=== PATIENT | female | born 1935 | race Caucasian/White ===

== ENCOUNTER 2021-06-17 20:39 | Inpatient (IN) | payer MEDICARE, BC ==
[~2021-06-17] VITALS: Ht 165.1 cm; Wt 87.2 kg
[2021-06-17] MEDS ORDERED: METOPROLOL TART25 MG PO (22:07)
[2021-06-17] MEDS ORDERED: FUROSEMIDE20 MG PO (22:07)
[2021-06-17] MEDS ORDERED: ARIPIPRAZOLE2 MG PO (22:08)
[2021-06-17] MEDS ORDERED: NEXIUM 24HR20 M2 PO (22:08)
[2021-06-17] MEDS ORDERED: SERTRALINE HCL100 MG PO (22:09)
[2021-06-17] MEDS ORDERED: MELATONIN3 MG PO (22:09)
[2021-06-17] MEDS ORDERED: COZAAR25 MG PO (22:09)
[2021-06-17] MEDS ORDERED: ACETAMINOPHEN500 MG PO (22:10)
[2021-06-17] MEDS ORDERED: KLOR-CON 1010 MEQ PO (22:11)
--- NOTE | 2021-06-18 01:17 | NUR ---
PT ARRIVED TO THE CCU VIA STRETCHER AWAKE AND ALERT ON 4L O2 NC, SPO2 95-100%. PT BELONGINGS BROUGHT, PT'S DAUGHTER IN LAW IN THE ROOM AT THE BEDSIDE. PT TRANSFERRED TO THE BED VIA HOVER MAT AND PT SAT UP. PT VITALS TAKEN AND PT ASSESSEDMENT COMPLETED (SEE CHART). PT ALERT AND ORIENTED X4, DENIES HAVING ANY PAIN, AND REPORTS THAT HER SHORTNESS OF BREATH HAS IMPROVED WITH THE OXYGEN SHE IS RECEIVING. LUNGS CLEAR IN UPPER LOBES, DIMINISHED IN THE BASES BILATERALLY, FINE CRACKLES HEARD IN RIGHT LOWER BASE. PT RR 20-23. BOWEL TONES HYPOACTIVE, RADIAL AND PEDAL PULSES STRONG, GENERALIZED EDEMA PRESENT IN LOWER LEGBS BILATERALLY. YIP IN PLACE AND DRAINING CLEAR YELLOW URINE. PT TEMP WAS 100 ORAL, PRN TYLENOL ADMINISTERED ALONG WITH SCHEDULED IV MAGNESIUM (SEE MAR). PT PROVIDED WITH ICE WATER AND JUICE PER HER REQUEST. ADMISSION HISTORY OBTAINED FROM BOTH THE PT AND DAUGHTER IN LAW. PT REPORTS NO FURTHER NEEDS AND IS NOW RESTING IN BED, IV MEDICATION INFUSING. PTS DAUGHTER IN LAW REMAINS IN THE ROOM AT THE BEDSIDE. CALL LIGHT IN REACH, BED IN LOWEST POSITION, WILL CONTINUE PLAN OF CARE.
--- NOTE | 2021-06-18 01:36 | NUR ---
CALL LIGHT USED BY PT, IV PUMP ALARMING, IV MAGNESIUM COMPLETED. PT SALINE LOCKED AT THIS TIME. PT REPORTS NO FURTHER NEEDS AT THIS TIME WHEN ASKED. PT ON 4L O2 NC, SPO2 97%, CALL LIGHT IN REACH, BED IN LOWEST POSITION, WILL CONTINUE PLAN OF CARE.
--- NOTE | 2021-06-18 03:30 | NUR ---
PT SLEEPING IN BED AT THIS TIME, RR EVEN, RATE 20-25, PT IN NO APPARENT DISTRESS AT THIS TIME AND WAS LEFT UNDISTURBED. PT'S DAUGHTER IN LAW SLEEPING IN THE PULL DOWN SOFA-BED IN ROOM. NO NEEDS ASSESSED AT THIS TIME, WILL CONTINUE PLAN OF CARE.
--- NOTE | 2021-06-18 05:00 | NUR ---
PT LAYING IN BED SLEEPING AND AWOKE EASILY. PT ORIENTED AT THIS TIME AND REPORTS NO SHORTNESS OF BREATH OR PAIN WHEN ASKED. PT VITALS TAKEN AND ASSESSMENT COMPLETED (SEE CHART). PT LEFT ON 4L O2 NC, SPO2 92-98%. PT PROVIDED WITH ICE WATER AFTEWARDS, YIP DRAINING CLEAR YELLOW URINE. PT REPORTS NO FURTHER NEEDS WEHN ASKED AND STATES SHE WILL TRY TO GET MORE SLEEP, WILL CONTINUE PLAN OF CARE. CALL LIGHT IN REACH, BED IN LOWEST POSITION, PT'S DAUGHTER IN LAW IN THE ROOM.
--- NOTE | 2021-06-18 06:27 | NUR ---
PT AWAKE AND ALERT LAYING IN BED AT THIS TIME. PT ON 4L O2 NC, SPO2 98%, PT DENIES HAVING SOB. PT REQUESTED WARM BLANKETS AT THIS TIME. WARM BLANKETS PROVIDED, PT REPORTS NO FURTHER NEEDS AT THIS TIME WHEN ASKED, CALL LIGHT IN REACH, BED IN LOWEST POSITION, WILL CONTINUE PLAN OF CARE.
--- NOTE | 2021-06-18 06:50 | NUR ---
DR. FRANCISCO UPDATED ON PT REGARDING VITALS, ASSESSMENT, AND LABS. NEW ORDERS FOR 20MEQ KCL IVPB GIVEN (SEE MAR). WILL CONTINUE PLAN OF CARE.
--- NOTE | 2021-06-18 07:23 | EKG ---
[facility] [address] [place] [address] Signed Wide QRS rhythm with occasional ventricular-paced complexes Left axis deviation Left bundle branch block Abnormal ECG No previous ECGs available Confirmed by YANDY FRANCISCO MD ([id number] on 06/18/2021 7:23:25 AM Electronically Signed By: YANDY FRANCISCO MD 06/18/21722 PATIENT NAME: JENNIFER MOON Electrocardiogram DATE OF : 35 PHYSICIAN: YANDY FRANCISCO MD REPORT #: [id number] REPORT IS CONFIDENTIAL AND NOT TO BE RELEASED WITHOUT AUTHORIZATION
--- NOTE | 2021-06-18 08:05 | NUR ---
IN TO DO ASSESSMENT AND GIVE PT HER BREAKFAST AND AM MEDS. ASKED PT HOW HER BREATHING FELT AND SHE SAID "BETTER", SPO2 100% ON 4L/O2/NC, WILL TITRATE O2 DOWN TO 2L. LUNGS DIM IN BASES CLEAR THROUGHOUT. PT DENIES HAVING MUCH COUGHING. ALERT AND ORIENTED. MEDS EXPLAINED TO PT AND PT AGREES TO ALL, KCL INFUSION STARTED. YIP IN PLACE DRAINING CLEAR YELLOW URINE. PT REPOSITIONED UP IN BED FOR BREAKFAST, ASSITED WITH GETTING FOOD SITUATIED, MORE APPLE JUICE AND WATER GIVEN. WEB SERVICES ARCHITECT TRAY GIVEN TO FAMILY MEMBER.
--- NOTE | 2021-06-18 08:45 | NUR ---
UPdate from Rn as pt has covid and is tired. Pt is doing well, using 3L02.
--- NOTE | 2021-06-18 09:13 | NUR ---
REPORT RECEIVED FORM DORI DAN. PT IS RESTING IN BED WITH EYES CLOSED, OPENS WITH DOOR OPENING. ASKED IF SHE NEEDS ANYTHING AND SHE REQUESTS MORE WATER, NO OTHER COMPLAINTS. FAMILY MEMBER SLEEPING ON COUCH.
--- NOTE | 2021-06-18 11:27 | NUR ---
IN TO CHECK ON PT, ORAL TEMP IS 100.8. PT DENIES FEELING SOB, SPO2 HAS BEEN 95% ON 2L/O2 WITH RR 20-28. SLIGHT EXP WHEEZE HEARD, CLEARED WITH COUGH. PT C/O HEADACHE, WILL GIVE PRN TYLENOL. PT GIVEN EDUCATION REGARDING PRONING AND IS AGREEABLE, PLAN TO SIDE LIE FOR A PERIOD AND THEN PRONE AFTER THAT. PT STATES SHE IS NOT HUNGRY AND DOES NOT FEEL LIKE EATING.
--- NOTE | 2021-06-18 11:48 | NUR ---
PT GIVEN PRN TYLENOL FOR HEADACHE AND FEVER. DR FRANCISCO IN TO SEE PT.
--- NOTE | 2021-06-18 13:31 | NUR ---
PT RESTING ON RIGHT SIDE WITH EYES CLOSED, RESP EVEN UNLABORED, RR 22, SPO2 95% ON 2L/O2/NC. DAUGHTER IN LAW ALSO SLEEPING ON COUCH.
--- NOTE | 2021-06-18 15:00 | NUR ---
PT CONT TO REST, HAS TURNED ONTO BACK, OPENS EYES BRIEFLY AND DENIES NEEDS.
--- NOTE | 2021-06-18 16:30 | NUR ---
IN TO DO ASSESSMENT, BED BATH AND REPOSITION PT. BED BATH GIVEN. PT THEN SAT UP TO EDGE OF BED, SWUNG HER LEGS OVER AND STOOD UP WITH ASSIST, HR STEADY 60, RESP DID NOT LOOK LABORED, DID SAY "I FEEL A LITTLE WOOZY". ATTEMPTED TO GET HER INTO PRONE POSITION, ALTHOUGH SHE DID HAVE SOME DIFFICULTY DUE TO KNEE PROBLEMS. WAS ABLE TO GET HER INTO SEMI PRONE, RIGHT SIDED POSITION. PT TOLERATING WELL, STATES SHE IS COMFORTABLE. CALL LIGHT PLACED INTO HAND. LUNGS HAVE CRACKLES BILATERALLY. HAS REMAINED ON 2L/O2/NC THROUGH THE DAY WITH SATS IN MID NINETIES, RR 20 AND HR 60 ATRIAL PACED. DAUGHTER IN LAW HAS REMAINED IN THE ROOM AND STATES SHE WILL BE STAYING WITH PT THE ENTIRE TIME. LINENS ALSO CHANGED DURING THIS TIME. PT HAD BEEN QUITE SWEATY, STATES "I STILL GET NIGHT SWEATS EVEN THOUGH IM 85"
--- NOTE | 2021-06-18 20:33 | NUR ---
PT IS DISORIENTED TO DATE ONLY, KNOWS MONTH AND YEAR. PT DENIES SOB AND PAIN AT THIS TIME. ASSISTED WITH ORAL CARE AND FACE WASHING. PT DENIES ANY NEEDS AT THIS TIME. O2 99% ON 2L VIA NC. CRACKELS BILATERAL POSTERIOR LUNG LYON. O2 WEANED TO 1L NC, WILL TITRATE INDICATED.
--- NOTE | 2021-06-18 23:40 | NUR ---
PT COMPLAINS OF 3/10 PAIN D/T HEADACHE. PRN TYLENOL ADMINISTERED PER PT REQUEST. PT DENIES FURTHER NEEDS AT THIS TIME. VSS. PT CONTINUES TO SAT IN THE HIGH 90S ON 1L VIA NC. WILL LEAVE ON 1L OVERNIGHT AND TITRATE APPROPRIATE WHILE AWAKE.
--- NOTE | 2021-06-19 07:40 | NUR ---
REPORT RECEIVED FROM JUDSON DAN. PT HAD CALLED, INC OF LOOSE STOOL, ASSISTED UP TO BR WITH WALKER TO SIT ON TOILET. HAD OXYGEN REMOVED, SATS WHEN SPO2 MONITOR PLACED BACK ON WAS 95%, WILL KEEP PT ON ROOM AIR AND CONT TO MONITOR. PT ASSISTED WITH CLEANING UP, BACK TO BED WITH SBA AND WALKER, ONCE BACK SITTING UP TO EDGE OF BED PT BECAME NAUSEATED AND HAD 100ML EMESIS. 4MG IV ZOFRAN GIVEN. ASSESSMENT DONE, LUNGS HAVE CRACKLES IN BASES BILAT. AFTER APPROX 10 MINUTES SHE STATES NAUSEA IS GONE, BUT DOES NOT WANT TO TRY EATING BREAKAST AT THIS TIME. DR FRANCISCO THEN IN TO SEE PT, PLAN OF CARE DISCUSSED WITH HER, PLAN TO TRANSFER PT TO MED SURG STATUS.
--- NOTE | 2021-06-19 08:36 | NUR ---
IN TO CHECK ON PT, PT STATES SHE IS FEELING BETTER, LOOKING PERKIER. SITTING UP DRINKING SOME MILK. GAVE HER HER AM MEDICATIONS, TOOK WITHOUT DIFFICULTY. AM CARES DONE, FACE WASHED AND HANDS WASHED. PT STATES SHE DID NOT SLEEP VERY WELL LAST NIGHT. DENIES FEELING SOB AT THIS TIME, REMAINS ON ROOM AIR WITH SPO2 95%. CALL LIGHT IN LAP AND WILL CALL WITH FURTHER NEEDS.
--- NOTE | 2021-06-19 09:52 | NUR ---
PT CALLED TO C/O 08/25 HEADACHE AND ASKING FOR PAIN MED, TYLENOL 650MG PO GIVEN. NO FURTHER REQUESTS, STATES NAUSEA STILL GONE SINCE ZOFRAN WAS GIVEN.
--- NOTE | 2021-06-19 10:33 | NUR ---
SPO2 HAD DROPPED DOWN TO 90-92%. OXYGEN REAPPLIED 1L/NC AND SATS CAME UP TO 96%.
--- NOTE | 2021-06-19 11:50 | NUR ---
LUNCH BROUGHT IN TO PT, PT ASSISTED WITH SITTING UP IN BED TO EAT. SPO2 98% ON 1L/O2. ASSESSMENT DONE, THEN PT SET UP TO EAT, NO REQUESTS, CALL LIGHT IN HAND.
--- NOTE | 2021-06-19 12:18 | NUR ---
MED REC COMPLETE
--- NOTE | 2021-06-19 13:00 | NUR ---
BPS HAVE BEEN LOWER THROUGH THE LAST FEW HOURS, URINE OUTPUT ALSO LOW, DR FRANCISCO NOTIFIED.
--- NOTE | 2021-06-19 14:17 | NUR ---
PT UP TO HAVE BOWEL MOVEMENT IN BATHROOM, USED WALKER, PHYSICAL THERAPY ALSO IN ASSISTING PT WITH WALKING. BED CHANGED, BED BATH GIVEN.
--- NOTE | 2021-06-19 14:49 | NUR ---
IN TO CHECK ON PT, IVF STARTED AND EXPLAINED TO PT. PT DENIES SOB/NAUSEA/HEADACHE. RESTING IN BED, DENIES NEEDS. REMAINS ON ROOM AIR WITH SPO2 93-94%.
--- NOTE | 2021-06-19 16:30 | NUR ---
IN TO TRANSFER PT TO MED SURG, REPORT GIVEN TO ASH DAN. PT NOTED TO HAVE CHILLS AND C/O BEING COLD. ORAL TEMP IS 100.2. 650MG PO TYLENOL GIVEN FOR PT COMFORT.
--- NOTE | 2021-06-19 17:00 | NUR ---
REPORT RECIEVED FROM [facility][1] CCU RN, PT AWAKE AND ALERT, PT HAVING CHILLS PRN TYLENOL GIVEN TO PT BY CCU NURSE, AQUATICS DIRECTOR AT BEDSIDE NO NEEDS
--- NOTE | 2021-06-19 17:45 | NUR ---
PT REQUESTING A DOSE OF ZOFRAN PRIOR TO DINNER. PRN GIVEN
--- NOTE | 2021-06-19 18:00 | NUR ---
Update from Rn. Pt has moved to the medical floor. Pt has vomiting and diarrhea this am. Now has a fever. No plan for dc today.
--- NOTE | 2021-06-19 19:40 | NUR ---
SHIFT REPORT RECEIVED FROM DAYSHIFT NI ALEMAN. pt AWAKE AND RESTING IN BED, DAUGHTER IN LAW ALSO IN ROOM. pt ON RA, CPOX IN PLACE. SPO2 AND HR BOTH WNL. NO NEEDS OR CONCERNS AT THIS TIME. CALL LIGHT IN REACH.
--- NOTE | 2021-06-19 21:30 | NUR ---
SPOKE TO DR BUSH, pt REPORTING PAIN R/T HEADACHE, UNABLE TO TAKE PRN TYLENOL. MD BUSH TO READJUST TIME DOSE AND FREQUENCY OF PRN TYLENOL.
--- NOTE | 2021-06-19 22:30 | NUR ---
ASSESSMENT COMPLETE, TELE DC'D AT SHIFT CHANGE, REMOVED AT THIS TIME. pt ON CPOX pt IS COVID +, ON RA. NO SOB OR DYSPNEA NOTED. TEMP RESULT OF 100.0, PRN TYLENOL GIVEN (SEE EMAR). pt DEMONSTRATED USE OF IS, ONLY REACHED THE 500 MARKER. pt UP FOR BID ORTHO VS, UNABLE TO STAND FOR FULL 3 MINUTES, ONLY ABLE TO OBTAIN LAYING BP/HR AND 1 MINUTE STANDING BP/HR. pt TOOK PILLS FINE, NO ISSUES SWALLOWING NOTED. pt REPSOITIONED IN BED AND BOOSTED. EXCESS BLANKETS REMOVED WELL SOCKS. CAREGIVEER REMAINS IN ROOM. CALL LIGHT IN REACH. IV SITE WNL, FLUIDS INFUSING DIRECTED. NO FURTHER NEEDS.
--- NOTE | 2021-06-20 00:18 | NUR ---
ROUNDED ON pt, pt RESTING QUIETLY IN BED WITH EYES CLOSED. pt AWOKE UPON ENTERING ROOM, REMAINS ON CPOX. SPO2 98%, HR 60'S. TEMP RECHECKED, RESULT OF 99.7. WILL CONTINUE TO MONITOR, CAREGIVER REMAINS IN ROOM AND PROVIDED WITH SANDWHICH BOX. NO FURTHER NEEDS VERBALIZED, CALL LIGHT IN REACH. IV FLUIDS INFUSING DIRECTED, IV SITE WNL.
--- NOTE | 2021-06-20 03:23 | NUR ---
ASSESSMENT COMPLETE, NO ACUTE CHANGES. pt AFEBRILE, RESULT OF 98.0. pt DEMNSTRATED USE OF IS, REACHED 1000 MARKER, NEARLY DOUBLED SINCE START OF SHIFT. pt DENIES NAUSEA AND PAIN. IV SITE SALINE LOCKED AT THIS TIME, ONE TIME BAG IV FLUIDS NOW COMPLETE. pt BOOSTED IN BED AND REPOSITIONED, PILLOW UNDER LEFT HIP/SIDE. CAREGIVER RADHA REMAINS IN ROOM. FRESH WATER PROVIDED. CALL LIGHT IN REACH.
--- NOTE | 2021-06-20 05:31 | NUR ---
IN ROOM TO COLLECT VS AND I&O'S. pt REPORTS FEELING COLD, SHIVERING/TREMORS NOTED IN BUE. CAREGIVER/DAUGHTER IN LAW GARCIA ALSO IN ROOM, REPORTED EARLIER IN SHIFT pt HAS HX OF THESE SHIVERING EPISODES/TREMORS AT HOME. NOTED EARLIER IN SHIFT WHEN pt WAS TAKING PILLS AND SIPPING ON WATER. RESOLVES AT REST. pt AFEBRILE, WARM BLANKETS PROVIDED AND ROOM TEMP INCREASED PER pt REQUEST. WILL CONTINUE TO MONITOR, DAUGHTER IN LAW GARCIA REPORTS pt HAS SIMILAR SHIVERS AT HOME "WHEN SHE'S COLD, BUT NOT THIS BAD". APPEARS TO BE IMPROVING AFTER INTERVENTIONS. CALL LIGHT IN REACH. TELEGRAPHIC TYPEWRITER OPERATORNI POWER.
--- NOTE | 2021-06-20 05:58 | NUR ---
LAB IN ROOM TO COLLECT AM LABS. SHIVERING RESOLVED AT THIS TIME.
--- NOTE | 2021-06-20 07:30 | NUR ---
REPORT RECIVED FROM SAFETY AND SECURITY MANAGER RN PT REESTING INM BED ON CPOC #10, 2L NC AT HS CHRONIC, PARATRANSIT DRIVER AT BED SIDE, NEEDING TO COLLECT MORNING LABS WILL HAVE FLOAT NURSE TRY TO COLLECT
--- NOTE | 2021-06-20 07:40 | NUR ---
lab unable to collect am labs, night western tack assembly line worker elisa also made aware. dayshift miguel a gardiner and dayshift journeyman electrician pv installer belkis both aware. float rn to attempt blood draw, miguel a gardiner aware.
--- NOTE | 2021-06-20 08:04 | NUR ---
PERIPHERAL IV STARTED IN PATIENT LEFT HAND FOR LAB DRAWS DUE TO DIFFICULT LAB DRAW. BLOOD SENT TO LAB.
[2021-06-20] MEDS ORDERED: METOPROLOL TART25 MG PO (10:47)
[2021-06-20] MEDS ORDERED: DEXAMETHASONE6 MG PO (10:48)
--- NOTE | 2021-06-20 11:14 | NUR ---
RN IN ROOM TO PULL YIP PER ORDERS, GEE CARES DONE ASSITED UP TO THE CHAIR EDUCATED TO CALL IF SHE NEEDS TO GET UP TO THE BATHROOM
--- NOTE | 2021-06-20 12:25 | NUR ---
PT WORKED WITH PT ABLE TO GET UP AND VOID POST CATHETER REMOVAL
--- NOTE | 2021-06-20 12:51 | NUR ---
Pt assisted with dressing to prep for discharge.
--- NOTE | 2021-06-20 12:58 | NUR ---
rn in room to go over discharge papers pt requesting a script for dr milagros linder called and asked, provider will place an order
[2021-06-20] MEDS ORDERED: ONDANSETRON ODT4 MG SL (13:11)
== END 2021-06-20 13:20 | disposition home or self-care (01) | DRG 177 ==
LOC: ED 20:39 → CCU 23:26 → MS 06-19 17:07
PROVIDERS: ADMIT Internal Medicine; ATTEND Internal Medicine
PROC: 8E0ZXY6 Isolation (ICD-10-PCS; principal; 2021-06-17)
PROC: XW033H6 Introduction of Other New Technology Monoclonal Antibody into Peripheral Vein, Percutaneous Approach, New Technology Group 6 (ICD-10-PCS; 2021-06-17)
PROC: 3E0DX3Z Introduction of Anti-inflammatory into Mouth and Pharynx, External Approach (ICD-10-PCS; 2021-06-17)
DX: U07.1 COVID-19 (principal); J12.82 Pneumonia due to coronavirus disease 2019; J96.01 Acute respiratory failure with hypoxia; I50.23 Acute on chronic systolic (congestive) heart failure; I48.20 Chronic atrial fibrillation, unspecified; Z23 Encounter for immunization; K21.9 Gastro-esophageal reflux disease without esophagitis; F03.90 Unspecified dementia, unspecified severity, without behavioral disturbance, psychotic disturbance, mood disturbance, and anxiety; F32.A Depression, unspecified; G47.33 Obstructive sleep apnea (adult) (pediatric); Z96.651 Presence of right artificial knee joint; Z95.810 Presence of automatic (implantable) cardiac defibrillator; Z90.49 Acquired absence of other specified parts of digestive tract; Z90.710 Acquired absence of both cervix and uterus; Z98.890 Other specified postprocedural states; Z88.8 Allergy status to other drugs, medicaments and biological substances; Z79.899 Other long term (current) drug therapy
CPT/HCPCS: 36415; 36600; 51702; 71045; 80048; 80053; 81001; 82803; 83735; 83880; 84484; 85025; 87077; 87088; 87186; 93005; 93010; 94760; 94762; 97110; 97116; 97161; 99285-25; A9270; C9803; J1650; J1940; J2405; J3475; J3480; J7030; J7060; J8540; M0247; U0003

== ENCOUNTER 2022-07-18 19:06 | Emergency (ER) | payer BC ==
[~2022-07-18] VITALS: Ht 165.1 cm; Wt 86.2 kg
[~2022-07-18 19:06] MED LIST: ACETAMINOPHEN500 MG PO; ARIPIPRAZOLE2 MG PO; ASPIRIN81 MG PO; COZAAR25 MG PO; DEXAMETHASONE6 MG PO; FUROSEMIDE20 MG PO; ISOSORBIDE MONO30 MG PO; KAOPECTATE262 MG/15 PO; KLOR-CON 1010 MEQ PO; LOSARTAN POTASS25 MG PO; MELATONIN3 MG PO; METOPROLOL TART25 MG PO; NEXIUM 24HR20 M2 PO; ONDANSETRON ODT4 MG SL; SERTRALINE HCL100 MG PO
--- NOTE | 2022-07-20 14:02 | EKG ---
[facility] [address] [place] [address] Signed Atrial-paced rhythm with prolonged AV conduction Left bundle branch block Abnormal ECG When compared with ECG of 30-MAY-2022 07:33, T wave inversion no longer evident in Inferior leads Confirmed by MAGDA BUSH MD ([id number]) on 07/20/2022 2:02:10 PM Electronically Signed By: MAGDA BUSH MD 07/20/22 1402 PATIENT NAME: JENNIFER MOON ANGELO Electrocardiogram DATE OF : 35 PHYSICIAN: MAGDA BUSH MD REPORT #: [id number] REPORT IS CONFIDENTIAL AND NOT TO BE RELEASED WITHOUT AUTHORIZATION
== END 2022-07-18 22:15 | disposition home or self-care (01) ==
LOC: ED 19:06
DX: T82.897A Other specified complication of cardiac prosthetic devices, implants and grafts, initial encounter (principal); I50.9 Heart failure, unspecified; J44.9 Chronic obstructive pulmonary disease, unspecified; Z88.2 Allergy status to sulfonamides; Z88.8 Allergy status to other drugs, medicaments and biological substances; Z79.899 Other long term (current) drug therapy; Z79.82 Long term (current) use of aspirin
CPT/HCPCS: 36415; 71045; 80053; 83735; 83880; 84484; 85025; 93005; 93010; 96365; 99284-25; A9270; J3475

== ENCOUNTER 2023-03-19 14:16 | Emergency (ER) | payer MEDICARE ==
[~2023-03-19] VITALS: Ht 165.1 cm; Wt 83.0 kg
[2023-03-19 17:44] LABS: BASOPHILS 0.8 % (0-2); EOSINOPHILS 0.5 % (0-6); HEMATOCRIT 37.3 % (35.0-50.0); HEMOGLOBIN 12.2 g/dL (12.0-18.0); LYMPHOCYTES 18.8 % (24-44); MCH 29.4 (27-36); MCHC 32.6 g/dl (30-36); MCV 90.2 fl (81-99); MONOCYTES 5.9 % (0-12); PLATELET COUNT 216 K/uL (140-440); RBC 4.14 M/ul (4.3-5.7); RDW 14.2 (10.5-15.0)
[2023-03-19 18:06] LABS: ALBUMIN 3.6 g/dL (3.4-5.0); ALBUMIN/GLOBULIN RATIO 1.06 (1.1-2.4); ANION GAP 14.9 (7-21); BILIRUBIN, TOTAL 0.4 ng/dL (0.2-1.0); BUN/CREATININE RATIO 14.28 (6.0-28.6); CALCIUM 9.1 mg/dL (8.5-10.1); CREATININE, SERUM 1.33 mg/dL (0.55-1.02); POTASSIUM 3.9 mmol/L (3.5-5.1)
[2023-03-19] MEDS ORDERED: AMOX TR-K CLV1 EAC1 PO (20:18)
[2023-03-19] MEDS ORDERED: MIRALAX17 GM PO (20:18)
[2023-03-19 21:17] VITALS: BP 138/80
== END 2023-03-19 21:15 | disposition home or self-care (01) ==
LOC: ED 14:16
PROVIDERS: Emergency Medicine
DX: K59.00 Constipation, unspecified (principal); K52.89 Other specified noninfective gastroenteritis and colitis; I50.9 Heart failure, unspecified; J44.9 Chronic obstructive pulmonary disease, unspecified; Z95.0 Presence of cardiac pacemaker; Z88.2 Allergy status to sulfonamides; Z88.8 Allergy status to other drugs, medicaments and biological substances; Z79.82 Long term (current) use of aspirin; Z79.899 Other long term (current) drug therapy
CPT/HCPCS: 36415; 74018; 74177; 80053; 85025; A9270; Q9967